=== PATIENT | male | born 1960 | race Caucasian/White ===

== ENCOUNTER 2017-07-23 11:04 | Emergency (ER) | payer MEDICAID ==
[2017-07-23] MEDS ORDERED: Promethazine/Cod 6.25mg-10mg/5ml Syr UD PO STA (11:34)
[2017-07-23] MEDS ORDERED: Albuterol-Ipratrop 3 mg / 0.5 (3 ml) UD IH STA (11:37)
--- NOTE | 2017-07-23 11:41 | ED PDOC ---
Arrival/HPI - General Chief Complaint: Cough, Cold, Congestion Time Seen by Provider: 07/23/17 11:33 Historian: Patient - History of Present Illness Narrative History of Present Illness (Text): 07/23/17 11:38 This 57 yo male presents to this ED c/o cough, fever since yesterday. Patient denies recent travel, dizziness, sob, cp, abdominal pain, skin rash, or abnormal gait. Time/Duration: Other (see hpi) Context: Home Past Medical History - Provider Review Nursing Documentation Reviewed: Yes - Infectious Disease Hx of Infectious Diseases: None - Cardiac Hx Hypertension: Yes - Endocrine/Metabolic Hx Diabetes Mellitus Type 2: Yes - Psychiatric Hx Substance Use: No Family/Social History - Physician Review Nursing Documentation Reviewed: Yes Family/Social History: Other (noncontributory) Smoking Status: Never Smoked Hx Alcohol Use: No Hx Substance Use: No Allergies/Home Meds Allergies/Adverse Reactions: Allergies No Known Allergies Allergy (Verified 07/23/17 11:34) Review of Systems - Review of Systems Constitutional: Fevers. absent: Fatigue, Weight Change, Night Sweats Eyes: Normal ENT: Normal. absent: Sore Throat, Rhinorrhea Respiratory: Cough. absent: SOB, Sputum, Wheezing Cardiovascular: Normal. absent: Chest Pain, Palpitations Gastrointestinal: Normal. absent: Abdominal Pain, Nausea, Vomiting Genitourinary Male: Normal. absent: Dysuria, Frequency Musculoskeletal: Normal Skin: Normal Neurological: Normal. absent: Headache, Dizziness, Focal Weakness, Gait Changes , Speech Changes, Facial Droop, Disequilibrium, Seizure Endocrine: Normal Hemo/Lymphatic: Normal Psychiatric: Normal Physical Exam Vital Signs Temp Pulse Resp BP Pulse Ox 07/23/17 11:36 101.7 F H 91 H 18 122/63 98 Temperature: Febrile Blood Pressure: Normal Pulse: Regular Respiratory Rate: Normal Appearance: Positive for: Well-Appearing, Non-Toxic, Comfortable Pain Distress: None Mental Status: Positive for: Alert and Oriented X 3 - Systems Exam Head: Present: Atraumatic, Normocephalic Pupils: Present: PERRL Extroacular Muscles: Present: EOMI Conjunctiva: Present: Normal Mouth: Present: Moist Mucous Membranes Pharnyx: Present: Normal. No: ERYTHEMA, EXUDATE, TONSILS ENLARGED Neck: Present: Normal Range of Motion Respiratory/Chest: Present: Clear to Auscultation, Good Air Exchange. No: Respiratory Distress, Accessory Muscle Use, Wheezes, Retracting, Rhonchi Cardiovascular: Present: Regular Rate and Rhythm, Normal S1, S2. No: Murmurs Abdomen: Present: Normal Bowel Sounds. No: Tenderness, Distention, Peritoneal Signs Back: Present: Normal Inspection. No: CVA Tenderness, Midline Tenderness Upper Extremity: Present: Normal Inspection, Normal ROM, NORMAL PULSES, Neurovascularly Intact, Capillary Refill < 2s. No: Cyanosis, Edema Lower Extremity: Present: Normal Inspection, NORMAL PULSES, Normal ROM. No: Edema Neurological: Present: GCS=15, CN II-XII Intact, Speech Normal, Motor Func Grossly Intact, Normal Sensory Function, Normal Cerebellar Funct, Gait Normal Skin: Present: Warm, Dry, Normal Color. No: Rashes Psychiatric: Present: Alert, Oriented x 3, Normal Insight, Normal Concentration Medical Decision Making ED Course and Treatment: 07/23/17 13:21 Re-evaluation. Patient feels better. Discussed results and plan with patient who expresses understanding. All questions answered and there is agreement with the plan to discharge home with instructions. Patient stable for discharge. Return if symptoms persist or worsen. Re-evaluation Time: 13:21 Reassessment Condition: Re-examined, Improved - Lab Interpretations Lab Results: Lab Results 07/23/17 12:01: Influenza Typ A,B (EIA) Negative for flu a/b I have reviewed the lab results: Yes Interpretation: No clinic. lab abnormalty - RAD Interpretation Narrative RAD Interpretations (Text): 07/23/17 12:13 HISTORY: Cough. Flu-like symptoms. COMPARISON: No prior. FINDINGS: LUNGS: No active pulmonary disease. PLEURA: No significant pleural effusion identified, no pneumothorax apparent. CARDIOVASCULAR: No radiographic findings to suggest acute or significant cardiovascular disease. OSSEOUS STRUCTURES: No significant abnormalities. VISUALIZED UPPER ABDOMEN: Normal. OTHER FINDINGS: None. IMPRESSION: No active disease. Radiology Orders: 07/23/17 11:44 CHEST PORTABLE [RAD] Stat - Medication Orders Current Medication Orders: Azithromycin (Zithromax) 500 mg PO STAT STA PRN Reason: Protocol Stop: 07/23/17 13:22 Discontinued Medications Acetaminophen (Tylenol 325mg Tab) 975 mg PO STAT STA Stop: 07/23/17 11:38 Last Admin: 07/23/17 12:23 Dose: 975 mg MAR Pain/Vitals Document 07/23/17 12:23 GMD (Rec: 07/23/17 12:23 GMD [id number]) Pain Reassessment Is This A Pain ReAssessment? No Albuterol/Ipratropium (Duoneb 3 Mg/0.5 Mg (3 Ml) Ud) 3 ml IH STAT STA Stop: 07/23/17 11:38 Last Admin: 07/23/17 12:23 Dose: 3 ml Promethazine HCl/Codeine (Phenergan/Codeine Oral Syrup) 5 ml PO STAT STA Stop: 07/23/17 11:35 Last Admin: 07/23/17 12:23 Dose: 5 ml Disposition/Present on Arrival - Present on Arrival Any Indicators Present on Arrival: No History of DVT/PE: No History of Uncontrolled Diabetes: No Urinary Catheter: No History of Decub. Ulcer: No History Surgical Site Infection Following: None - Disposition Have Diagnosis and Disposition been Completed?: Yes Diagnosis: Bronchitis Disposition: HOME/ ROUTINE Disposition Time: 13:22 Patient Plan: Discharge Patient Problems: Current Active Problems Problem Status Onset Bronchitis Acute Condition: GOOD Discharge Instructions (ExitCare): Acute Bronchitis (ED) Additional Instructions: Call private doctor for follow up visit in 1-2 days. take medication as instructed. Return to emergency if symptoms worsen. Prescriptions: Azithromycin [Z-Yo] 250 mg PO DAILY #4 tab Ibuprofen [Motrin] 600 mg PO Q6H PRN #20 tab PRN Reason: Fever >100.4 F Promethazine [Phenergan Syrup] 6.25 mg PO Q4H PRN #120 ml PRN Reason: Cough And Congestion Referrals: Tanesha Miller DO [Family Provider] - Follow up with primary Forms: [employer] (Salvadorean)
[2017-07-23 11:44] VITALS: RESP 18; TEMP 101.7
--- NOTE | 2017-07-23 12:10 | RAD ---
HISTORY: Cough. Flu-like symptoms. COMPARISON: No prior. FINDINGS: LUNGS: No active pulmonary disease. PLEURA: No significant pleural effusion identified, no pneumothorax apparent. CARDIOVASCULAR: No radiographic findings to suggest acute or significant cardiovascular disease. OSSEOUS STRUCTURES: No significant abnormalities. VISUALIZED UPPER ABDOMEN: Normal. OTHER FINDINGS: None. IMPRESSION: No active disease.
[2017-07-23 13:47] VITALS: BP 124/79; PULSE 82; O2SAT 100
== END 2017-07-23 14:14 | disposition home or self-care (01) ==
LOC: ED 11:04
DX: J20.9 Acute bronchitis, unspecified (principal)

== ENCOUNTER 2017-09-02 05:42 | Emergency (ER) | payer MEDICAID ==
[2017-09-02 05:53] VITALS: RESP 18
[2017-09-02] MEDS ORDERED: DiphenhydrAMINE 50 mg/ml Inj IVP STA (06:21)
--- NOTE | 2017-09-02 06:25 | ED PDOC ---
Arrival/HPI - General Chief Complaint: Allergic Reaction Time Seen by Provider: 09/02/17 06:11 Historian: Patient, Family - History of Present Illness Narrative History of Present Illness (Text): 09/02/17 06:22 Patient is a 57M who comes to the ED complaining of diffuse itchiness for 3 days duration. It started gradually and is intermittent in nature. However, sometimes it is associated with SOB and dizziness. His only know allergy is to penicillin and he denies any inciting factors to the itchiness. He denies noticing any hives or rashes. He denies any chest pain, fevers, chills, nausea, vomiting. The patient has never experienced this before. Symptom Onset: Gradual Symptom Course: Intermittent Activities at Onset: Rest Past Medical History - Infectious Disease Hx of Infectious Diseases: None - Cardiac Hx Hypertension: Yes - Endocrine/Metabolic Hx Diabetes Mellitus Type 2: Yes - Psychiatric Hx Substance Use: No Family/Social History Family/Social History: Unknown Family HX Smoking Status: Never Smoked Hx Alcohol Use: No Hx Substance Use: No Allergies/Home Meds Allergies/Adverse Reactions: Allergies No Known Allergies Allergy (Verified 07/23/17 11:34) Review of Systems - Review of Systems Constitutional: Normal Eyes: Normal ENT: Normal Respiratory: SOB Cardiovascular: absent: Chest Pain Gastrointestinal: Normal. absent: Nausea, Vomiting Genitourinary Male: Normal Musculoskeletal: Normal Skin: Rash, Pruritis Neurological: Normal Endocrine: Normal Hemo/Lymphatic: Normal Psychiatric: Normal Physical Exam Vital Signs Reviewed: Yes Vital Signs Temp Pulse Resp BP Pulse Ox 09/02/17 05:52 97.7 F 88 18 132/74 99 Temperature: Afebrile Blood Pressure: Normal Pulse: Regular Respiratory Rate: Normal Appearance: Positive for: Well-Appearing, Non-Toxic, Comfortable Pain Distress: None Mental Status: Positive for: Alert and Oriented X 3 - Systems Exam Head: Present: Atraumatic, Normocephalic Pupils: Present: PERRL Extroacular Muscles: Present: EOMI Conjunctiva: Present: Normal Mouth: Present: Moist Mucous Membranes Neck: Present: Normal Range of Motion Respiratory/Chest: Present: Clear to Auscultation, Good Air Exchange. No: Respiratory Distress, Accessory Muscle Use Cardiovascular: Present: Regular Rate and Rhythm, Normal S1, S2. No: Murmurs Abdomen: Present: Normal Bowel Sounds, Peritoneal Signs. No: Tenderness, Distention Upper Extremity: Present: Normal Inspection. No: Cyanosis, Edema Lower Extremity: Present: Normal Inspection. No: Edema Neurological: Present: GCS=15, CN II-XII Intact, Speech Normal Skin: Present: Warm, Dry, Normal Color. No: Rashes Psychiatric: Present: Alert, Oriented x 3, Normal Insight, Normal Concentration Medical Decision Making ED Course and Treatment: 09/02/17 06:28 patient currently itchy w/ no associated SOB Will give Benadryl and Steroids and reassess. - Medication Orders Current Medication Orders: Discontinued Medications Diphenhydramine HCl (Benadryl) 25 mg IVP STAT STA Stop: 09/02/17 06:22 Prednisone (Prednisone Tab) 5 mg PO STAT STA Stop: 09/02/17 06:22 Disposition/Present on Arrival - Present on Arrival Any Indicators Present on Arrival: No History of DVT/PE: No History of Uncontrolled Diabetes: No Urinary Catheter: No History of Decub. Ulcer: No History Surgical Site Infection Following: None - Disposition Have Diagnosis and Disposition been Completed?: Yes Diagnosis: Generalized pruritus Disposition Time: 06:30 Patient Plan: Discharge Condition: STABLE Forms: [employer] (Thai)
[2017-09-02 07:16] LABS: BASO # 0.09 K/mm3 (0.0-2.0); EOS # 0.7 (0.0-0.7); EOS % 7.8 % (1.5-5.0); GRAN # 3.58 (1.4-6.5); LYMPH # 4.5 (1.2-3.4); LYMPH % 47.5 % (22.0-35.0); MEAN CELL VOLUME 90.5 fl (80.0-105.0); MEAN CORPUSCULAR HGB CONC 36.5 g/dl (31.0-37.0); MEAN PLATELET VOLUME 12.4 fl (7.0-11.0); MONO # 0.5 (0.1-0.6); MONO % 5.7 % (1.0-6.0); RBC 5.15 10^6/uL (3.5-6.1); RED CELL DISTRIBUTION WIDTH 13.2 % (11.5-14.5); WHITE BLOOD COUNT 9.4 10^3/ul (4.5-11.0)
[2017-09-02 07:27] LABS: ALB/GLOB RATIO 1.1 (1.1-1.8); ALBUMIN 4.1 g/dL (3.0-4.8); ALT/SGPT 83 U/L (7-56); AST/SGOT 59 U/L (17-59); BLOOD UREA NITROGEN 10 mg/dL (7-21); CALCIUM 9.7 mg/dL (8.4-10.5); GFR AFRICAN-AMERICAN > 60; GFR NON-AFRICAN AMERICAN > 60
[2017-09-02 07:38] VITALS: BP 129/79; PULSE 70; TEMP 97.8; O2SAT 96
--- NOTE | 2017-09-02 09:48 | ED PDOC ---
Physical Exam Vital Signs Reviewed: Yes Vital Signs Temp Pulse Resp BP Pulse Ox 09/02/17 07:33 97.8 F 70 18 129/79 96 09/02/17 05:52 97.7 F 88 18 132/74 99 Temperature: Afebrile Blood Pressure: Normal Pulse: Regular Respiratory Rate: Normal Appearance: Positive for: Well-Appearing, Non-Toxic, Comfortable Pain Distress: None Mental Status: Positive for: Alert and Oriented X 3 Medical Decision Making ED Course and Treatment: 09/02/17 09:47 Pt signed to me by Austin Eubanks. Pt was awaiting a follow up of labs. Labs are normal. Pt will follow up with PMD in 2 weeks. - Lab Interpretations Lab Results: 09/02/17 07:00 09/02/17 07:00 Lab Results 09/02/17 07:00: Sodium 141, Potassium 3.4 L, Chloride 105, Carbon Dioxide 26, Anion Gap 14, BUN 10, Creatinine 0.9, Est GFR ( Amer) > 60, Est GFR (Non- Af Amer) > 60, Random Glucose 128 H, Calcium 9.7, Magnesium 1.9, Total Bilirubin 0.4, AST 59, ALT 83 H, Alkaline Phosphatase 99, Total Protein 7.9, Albumin 4.1, Globulin 3.7, Albumin/Globulin Ratio 1.1 09/02/17 07:00: WBC 9.4, RBC 5.15, Hgb 17.0, Hct 46.6, MCV 90.5, MCH 33.0, MCHC 36.5, RDW 13.2, Plt Count 149, MPV 12.4 H, Gran % 38.0 L, Lymph % (Auto) 47.5 H , [place] % (Auto) 5.7, Eos % (Auto) 7.8 H, Baso % (Auto) 1.0, Gran # 3.58, Lymph # (Auto) 4.5 H, [place] # (Auto) 0.5, Eos # (Auto) 0.7, Baso # (Auto) 0.09 - Medication Orders Current Medication Orders: Discontinued Medications Diphenhydramine HCl (Benadryl) 25 mg IVP STAT STA Stop: 09/02/17 06:22 Last Admin: 09/02/17 06:54 Dose: 25 mg IVP Administration Document 09/02/17 06:54 JESSICA (Rec: 09/02/17 06:54 JESSICA [id number]) Charges for Administration # of IVP Administrations 1 Prednisone (Prednisone Tab) 5 mg PO STAT STA Stop: 09/02/17 06:22 Last Admin: 09/02/17 06:57 Dose: - Scribe Statement The provider has reviewed the documentation as recorded by the Scribe Sade Haque All medical record entries made by the Scribe were at my direction and personally dictated by me. I have reviewed the chart and agree that the record accurately reflects my personal performance of the history, physical exam, medical decision making, and the department course for this patient. I have also personally directed, reviewed, and agree with the discharge instructions and disposition. Disposition/Present on Arrival - Present on Arrival Any Indicators Present on Arrival: No History of DVT/PE: No History of Uncontrolled Diabetes: No Urinary Catheter: No History of Decub. Ulcer: No History Surgical Site Infection Following: None - Disposition Have Diagnosis and Disposition been Completed?: Yes Diagnosis: Generalized pruritus Disposition: HOME/ ROUTINE Disposition Time: 07:30 Condition: STABLE Discharge Instructions (ExitCare): Itchy Skin Additional Instructions: Thank you for letting us take care of you today. The emergency medical care you received today was directed at your acute symptoms. If you were prescribed any medication, please fill it and take as directed. It may take several days for your symptoms to resolve. Return to the Emergency Department if your symptoms worsen, do not improve, or if you have any other problems. Please contact your doctor or call one of the physicians/clinics you have been referred to that are listed on the Patient Visit Information form that is included in your discharge packet. Bring any paperwork you were given at discharge with you along with any medications you are taking to your follow up visit. Our treatment cannot replace ongoing medical care by a primary care provider (PCP) outside of the emergency department. Thank you for allowing the [facility] team to be part of your care today. Follow up with your primary care doctor in 2-3 days for re-evaluation and further management. Referrals: Diallo Mena DO [Primary Care Provider] - Follow up with primary Forms: [employer] (Yakut)
== END 2017-09-02 08:17 | disposition home or self-care (01) ==
LOC: ED 05:42
DX: L29.9 Pruritus, unspecified (principal)
CPT/HCPCS: 80053; 83735; 85025; 96374; 99282; J1200; J2930

== ENCOUNTER 2018-04-16 21:12 | Emergency (ER) | payer MEDICAID ==
[2018-04-16 21:24] VITALS: BMI 31.3
[2018-04-16] MEDS ORDERED: Sodium Chloride 0.9% 1,000 ML IV STA (21:43)
[2018-04-16 21:44] VITALS: TEMP 98.1
[2018-04-16 21:52] LABS: BASO # 0.04 K/mm3 (0.0-2.0); BASO % 0.3 % (0.0-3.0); EOS # 0.2 (0.0-0.7); EOS % 1.4 % (1.5-5.0); GRAN # 8.04 (1.4-6.5); LYMPH # 2.9 (1.2-3.4); LYMPH % 24.7 % (22.0-35.0); MEAN CELL VOLUME 92.3 fl (80.0-105.0); MEAN CORPUSCULAR HEMOGLOBIN 32.8 pg (25.0-35.0); MEAN CORPUSCULAR HGB CONC 35.5 g/dl (31.0-37.0); MEAN PLATELET VOLUME 12.2 fl (7.0-11.0); MONO # 0.7 (0.1-0.6); MONO % 5.6 % (1.0-6.0); RBC 5.19 10^6/uL (3.5-6.1); RED CELL DISTRIBUTION WIDTH 13.7 % (11.5-14.5); WHITE BLOOD COUNT 11.8 10^3/uL (4.5-11.0)
[2018-04-16 22:03] LABS: BLOOD UREA NITROGEN 16 mg/dL (7-21); CALCIUM 9.5 mg/dL (8.4-10.5); GFR NON-AFRICAN AMERICAN > 60; LIPASE 105 U/L (23-300)
[2018-04-16 22:11] LABS: INR 1.09; PARTIAL THROMBOPLASTIN TIME 30.6 Seconds (25.1-36.5); PROTHROMBIN TIME 12.4 SECONDS (9.4-12.5)
[2018-04-16 22:27] LABS: ALB/GLOB RATIO 1.2 (1.1-1.8); ALBUMIN 4.2 g/dL (3.0-4.8); ALT/SGPT 50 U/L (7-56); AST/SGOT 48 U/L (17-59)
[2018-04-16 23:07] LABS: PH,URINE 5.5 (4.7-8.0); URINE APPEARANCE SLIGHT-CLOUDY (CLEAR); URINE BILIRUBIN NEGATIVE (NEGATIVE); URINE BLOOD LARGE (NEGATIVE); URINE COLOR BROWN (YELLOW); URINE GLUCOSE (UA) NEGATIVE (NEGATIVE); URINE LEUKOCYTE ESTERASE TRACE Leu/uL (NEGATIVE); URINE PROTEIN 30 mg/dL (<30 mg/dL)
[2018-04-16 23:08] LABS: URINE BACTERIA SMALL (NEG); URINE RBC TNTC /hpf (0-2)
--- NOTE | 2018-04-17 00:07 | ED PDOC ---
Arrival/HPI - General Historian: Patient - History of Present Illness Narrative History of Present Illness (Text): 04/16/18 23:57 58yo male with past medical history of hypertension, Diabetes who present with complaint of left sided flank pain that started at 1930 this evening. the son by the bedside states he had the pain last week and it resolved and then started again this evening. Report history of kidney stone 9years ago. States he was nausea earlier, but it resolved. +Hematuria. Denies fever, chills, back pain, urinary frequency/hesitancy, vomiting, diarrhea, constipation, any other complaint. <Cathie Shepard - Last Filed: 04/17/18 00:48> <Ricky Haro - Last Filed: 04/17/18 00:58> - General Chief Complaint: Back Pain Past Medical History - Provider Review Nursing Documentation Reviewed: Yes - Infectious Disease Hx of Infectious Diseases: None - Cardiac Hx Hypertension: Yes - Endocrine/Metabolic Hx Diabetes Mellitus Type 2: Yes - Hematological/Oncological Hx Blood Disorders: No - Integumentary Hx Dermatological Disorder: No - Musculoskeletal/Rheumatological Hx Musculoskeletal Disorders: No - Gastrointestinal Hx Gastrointestinal Disorders: No - Genitourinary/Gynecological Hx Genitourinary Disorders: No - Psychiatric Hx Psychophysiologic Disorder: No Hx Substance Use: No - Anesthesia Hx Anesthesia: No <Cathie Shepard A - Last Filed: 04/17/18 00:48> Family/Social History - Physician Review Nursing Documentation Reviewed: Yes Family/Social History: Unknown Family HX Smoking Status: Never Smoked Hx Alcohol Use: No Hx Substance Use: No <Cathie Shepard - Last Filed: 04/17/18 00:48> Allergies/Home Meds <Cathie Shepard - Last Filed: 04/17/18 00:48> <Ricky Haro - Last Filed: 04/17/18 00:58> Allergies/Adverse Reactions: Allergies Penicillins Allergy (Verified 04/16/18 21:25) SHORTNESS OF BREATH Home Medications: Home Meds Medication Instructions Recorded Confirmed Alogliptin Benzoate [Alogliptin] 25 mg PO DAILY 04/16/18 04/16/18 Atorvastatin [Lipitor] 20 mg PO DAILY 04/16/18 04/16/18 Bisoprolol Fumarate 5 mg PO DAILY 04/16/18 04/16/18 Cholecalciferol (Vitamin D3) 1 tab PO MON 04/16/18 04/16/18 [Vitamin D3] Metformin HCl [Glucophage] 1,000 mg PO BID 04/16/18 04/16/18 Multivitamin with Iron [Tab-A-Ying 1 tab PO DAILY 04/16/18 04/16/18 with Iron] Phenazopyridine HCl 200 mg PO TID PRN 04/16/18 04/16/18 Review of Systems - Physician Review All systems were reviewed & negative as marked: Yes - Review of Systems Constitutional: Normal Eyes: Normal ENT: Normal Respiratory: Normal Cardiovascular: Normal Gastrointestinal: Abdominal Pain (LEft flank), Nausea. absent: Constipation, Diarrhea, Vomiting, Appetite Changes, Hematochezia, Hematemesis Genitourinary Male: Hematuria. absent: Dysuria, Frequency Musculoskeletal: Normal Skin: Normal Neurological: Normal Endocrine: Normal Hemo/Lymphatic: Normal Psychiatric: Normal <Diru,Happiness A - Last Filed: 04/17/18 00:48> Physical Exam Vital Signs Reviewed: Yes Vital Signs Temp Pulse Resp BP Pulse Ox 04/16/18 21:34 98.1 F 73 18 169/87 H 98 Temperature: Afebrile Blood Pressure: Normal Pulse: Regular Respiratory Rate: Normal Appearance: Positive for: Well-Appearing, Non-Toxic, Comfortable Pain Distress: None Mental Status: Positive for: Alert and Oriented X 3 - Systems Exam Head: Present: Atraumatic, Normocephalic Pupils: Present: PERRL Extroacular Muscles: Present: EOMI Conjunctiva: Present: Normal Mouth: Present: Moist Mucous Membranes Neck: Present: Normal Range of Motion Respiratory/Chest: Present: Clear to Auscultation, Good Air Exchange. No: Respiratory Distress, Accessory Muscle Use Cardiovascular: Present: Regular Rate and Rhythm, Normal S1, S2. No: Murmurs Abdomen: Present: Tenderness (Left flank), Normal Bowel Sounds, Other (Soft). No: Distention, Peritoneal Signs, Rebound, Guarding, McBurney's Point Tender, Rovsing's Sign Present Back: Present: Normal Inspection Upper Extremity: Present: Normal Inspection. No: Cyanosis, Edema Lower Extremity: Present: Normal Inspection. No: Edema Neurological: Present: GCS=15, CN II-XII Intact, Speech Normal Skin: Present: Warm, Dry, Normal Color. No: Rashes Psychiatric: Present: Alert, Oriented x 3, Normal Insight, Normal Concentration <Cathie Shepard - Last Filed: 04/17/18 00:48> Vital Signs Temp Pulse Resp BP Pulse Ox 04/16/18 21:34 98.1 F 73 18 169/87 H 98 <Ricky Haro - Last Filed: 04/17/18 00:58> Medical Decision Making ED Course and Treatment: 04/17/18 00:13 PT presented for stated history. He was in pain on observation. On r evaluation after medication and hydration, he reports improvement of his pain. He was laughing and having conversation with his family members by the bedside. Labs was reviewed and mild leukocytosis was noted He have UTI Abdominal/Pelvic CT Impression: 1. Mild left-sided hydronephrosis and hydroureter caused by a 2 mm obstructing stone in the distal left ureter. 2. No obstructive or inflammatory bowel changes. Result was DW both the pt and the family members. He was referred to a Urologist Zahira Mcmillan and Percocet was given to the pt Advised to return to ED fEmergency department new or worsening symptoms - Lab Interpretations Lab Results: 04/16/18 21:49 04/16/18 21:49 Lab Results 04/16/18 22:57: Urine Color Brown, Urine Appearance Slight-cloudy, Urine pH 5.5, Ur Specific [place] >= 1.030, Urine Protein 30 H, Urine Glucose (UA) Negative, Urine Ketones Trace H, Urine Blood Large H, Urine Nitrate Positive H, Urine Bilirubin Negative, Urine Urobilinogen 1.0 H, Ur Leukocyte Esterase Trace H, Urine RBC Tntc, Urine WBC 1 - 3, Ur Epithelial Cells None, Urine Bacteria Small 04/16/18 21:49: Sodium 140, Potassium 3.7, Chloride 106, Carbon Dioxide 22, Anion Gap 16, BUN 16, Creatinine 1.0, Est GFR ( Amer) > 60, Est GFR (Non- Af Amer) > 60, Random Glucose 164 H, Calcium 9.5, Magnesium 1.7, Total Bilirubin 0.8, AST 48, ALT 50, Alkaline Phosphatase 103, Total Protein 7.8, Albumin 4.2, G lobulin 3.6, Albumin/Globulin Ratio 1.2, Lipase 105 04/16/18 21:49: PT 12.4, INR 1.09, APTT 30.6 04/16/18 21:49: WBC 11.8 H, RBC 5.19, Hgb 17.0, Hct 47.9, MCV 92.3, MCH 32.8, MCHC 35.5, RDW 13.7, Plt Count 128, MPV 12.2 H, Gran % 68.0, Lymph % (Auto) 24.7, [place] % (Auto) 5.6, Eos % (Auto) 1.4 L, Baso % (Auto) 0.3, Gran # 8.04 H, Lymph # (Auto) 2.9, [place] # (Auto) 0.7 H, Eos # (Auto) 0.2, Baso # (Auto) 0.04 - RAD Interpretation Radiology Orders: 04/16/18 21:42 ABD & PELVIS W/O PO OR IV CONT [CT] Stat - Medication Orders Current Medication Orders: Discontinued Medications Sodium Chloride (Sodium Chloride 0.9%) 1,000 mls @ 999 mls/hr IV .Q1H1M STA Stop: 04/16/18 22:43 Last Admin: 04/16/18 21:54 Dose: 999 mls/hr eMAR Start Stop Document 04/16/18 21:54 IT (Rec: 04/16/18 21:54 IT [place] [id number]) Intravenous Solution Start Date 04/16/18 Start Time 21:54 Ketorolac Tromethamine (Toradol) 30 mg IVP STAT STA Stop: 04/16/18 21:44 Last Admin: 04/16/18 21:54 Dose: 30 mg MAR Pain Assessment Document 04/16/18 21:54 IT (Rec: 04/16/18 21:54 [place] [id number]) Pain Reassessment Is this a pain reassessment? No IVP Administration Document 04/16/18 21:54 IT (Rec: 04/16/18 21:54 IT [place] [id number]) Charges for Administration # of IVP Administrations 1 <Cathie Shepard - Last Filed: 04/17/18 00:48> - Lab Interpretations Lab Results: 04/16/18 21:49 04/16/18 21:49 Lab Results 04/16/18 22:57: Urine Color Brown, Urine Appearance Slight-cloudy, Urine pH 5.5, Ur Specific [place] >= 1.030, Urine Protein 30 H, Urine Glucose (UA) Negative, Urine Ketones Trace H, Urine Blood Large H, Urine Nitrate Positive H, Urine Bilirubin Negative, Urine Urobilinogen 1.0 H, Ur Leukocyte Esterase Trace H, Urine RBC Tntc, Urine WBC 1 - 3, Ur Epithelial Cells None, Urine Bacteria Small 04/16/18 21:49: Sodium 140, Potassium 3.7, Chloride 106, Carbon Dioxide 22, Anion Gap 16, BUN 16, Creatinine 1.0, Est GFR ( Amer) > 60, Est GFR (Non- Af Amer) > 60, Random Glucose 164 H, Calcium 9.5, Magnesium 1.7, Total Bilirubin 0.8, AST 48, ALT 50, Alkaline Phosphatase 103, Total Protein 7.8, Albumin 4.2, Globulin 3.6, Albumin/Globulin Ratio 1.2, Lipase 105 04/16/18 21:49: PT 12.4, INR 1.09, APTT 30.6 04/16/18 21:49: WBC 11.8 H, RBC 5.19, Hgb 17.0, Hct 47.9, MCV 92.3, MCH 32.8, MCHC 35.5, RDW 13.7, Plt Count 128, MPV 12.2 H, Gran % 68.0, Lymph % (Auto) 24.7, [place] % (Auto) 5.6, Eos % (Auto) 1.4 L, Baso % (Auto) 0.3, Gran # 8.04 H, Lymph # (Auto) 2.9, [place] # (Auto) 0.7 H, Eos # (Auto) 0.2, Baso # (Auto) 0.04 - RAD Interpretation Radiology Orders: 04/16/18 21:42 ABD & PELVIS W/O PO OR IV CONT [CT] Stat - Medication Orders Current Medication Orders: Discontinued Medications Ciprofloxacin (Cipro) 500 mg PO ONCE STA; Protocol Stop: 04/17/18 00:22 Last Admin: 04/17/18 00:37 Dose: 500 mg Sodium Chloride (Sodium Chloride 0.9%) 1,000 mls @ 999 mls/hr IV .Q1H1M STA Stop: 04/16/18 22:43 Last Admin: 04/16/18 21:54 Dose: 999 mls/hr eMAR Start Stop Document 04/16/18 21:54 IT (Rec: 04/16/18 21:54 IT [email or web address]) Intravenous Solution Start Date 04/16/18 Start Time 21:54 Ketorolac Tromethamine (Toradol) 30 mg IVP STAT STA Stop: 04/16/18 21:44 Last Admin: 04/16/18 21:54 Dose: 30 mg MAR Pain Assessment Document 04/16/18 21:54 IT (Rec: 04/16/18 21:[address] [facility] Pain Reassessment Is this a pain reassessment? No IVP Administration Document 04/16/18 21:54 IT (Rec: 04/16/18 21:54 IT [facility] Charges for Administration # of IVP Administrations 1 Oxycodone/Acetaminophen (Percocet 5/325 Mg Tab) 1 tab PO STAT STA Stop: 04/17/18 00:47 Last Admin: 04/17/18 00:56 Dose: 1 tab MAR Pain Assessment Document 04/17/18 00:56 IT (Rec: 04/17/18 00:57 IT [facility] Pain Reassessment Is this a pain reassessment? No Sleep Is patient sleeping during reassessment? No Presence of Pain Presence of Pain Yes Tamsulosin HCl (Flomax) 0.4 mg PO STAT STA Stop: 04/17/18 00:22 Last Admin: 04/17/18 00:38 Dose: 0.4 mg <Ricky Haro - Last Filed: 04/17/18 00:58> - PA / BUSINESS ASSISTANT / Resident Statement / has reviewed & agrees with the documentation as recorded. <Ricky Haro - Last Filed: 04/17/18 00:58> Disposition/Present on Arrival - Present on Arrival Any Indicators Present on Arrival: No History of DVT/PE: No History of Uncontrolled Diabetes: No Urinary Catheter: No History of Decub. Ulcer: No History Surgical Site Infection Following: None - Disposition Have Diagnosis and Disposition been Completed?: Yes Disposition Time: 00:25 Patient Plan: Discharge <Cathie Shepard - Last Filed: 04/17/18 00:48> <Ricky Haro - Last Filed: 04/17/18 00:58> - Disposition Diagnosis: UTI (urinary tract infection), Ureter colic Disposition: HOME/ ROUTINE Patient Problems: Current Active Problems Problem Status Onset UTI (urinary tract infection) Acute Ureter colic Acute Condition: STABLE Discharge Instructions (ExitCare): Urinary Tract Infections in Adults, Renal Colic Additional Instructions: Follow up with a Urologist Drink plenty of fluid and rest Return to Emergency department for any new or worsening symptoms Prescriptions: Ciprofloxacin [Cipro] 500 mg PO BID #14 tab oxyCODONE/Acetaminophen [Percocet 5/325 mg Tab] 1 ea PO Q6 #8 tab Tamsulosin [Flomax] 0.4 mg PO DAILY #3 cap Referrals: Hussein Simeon MD [Staff Provider] - Follow up with primary Forms: [employer] ([place])
[2018-04-17] MEDS ORDERED: Oxycodone/Acetaminophen 5/325 mg Tab PO STA (00:46)
[2018-04-17 01:09] VITALS: BP 142/68; PULSE 72; RESP 17; O2SAT 100
--- NOTE | 2018-04-17 09:55 | CT ---
Date of service: 04/16/2018 PROCEDURE: CT Abdomen and Pelvis with Oral contrast. HISTORY: Left flank pain COMPARISON: No prior study available comparison TECHNIQUE: Contiguous axial images of the abdomen and pelvis without oral or intravenous contrast material. Additional 2D sagittal and coronal reformats generated. Radiation dose: Total exam DLP = 1156.23 mGy-cm. This CT exam was performed using one or more of the following dose reduction techniques: Automated exposure control, adjustment of the mA and/or kV according to patient size, and/or use of iterative reconstruction technique. FINDINGS: LOWER THORAX: Heart size is mildly enlarged. No significant pericardial effusion. Small hiatal hernia. Wall thickening of distal esophagus likely due to protrusion gastric mucosa however esophagitis not excluded. Passive/dependent type atelectasis both posterior lower lung mariee. No effusion or basilar pneumothorax. LIVER: Liver is enlarged measuring over 20 cm in CC dimension. No obvious hepatic mass collection or calcification. GALLBLADDER AND BILE DUCTS: Gallbladder is incompletely distended the (likely due to nonfasting state) which may in part account for slight thick-walled appearance. No evidence of intraluminal gallbladder calculi. PANCREAS: Pancreas slightly atrophic and fatty replaced. No evidence of pancreatic masses collections or calcifications. SPLEEN: Spleen is enlarged measuring nearly 15 cm in CC dimension. No splenic mass collection or calcification. ADRENALS: There is slight prominence of the right adrenal gland more so than left which exhibits low-attenuation. The possibility of a small adenoma the to be considered. Follow-up of CT scan at interval could be performed to assess stability. KIDNEYS AND URETERS: The the kidneys demonstrate relatively symmetric size. There is mild left-sided hydronephrosis secondary to an approximately 3 mm obstructing calculus in the distal left ureter the just proximal to the UVJ region. Mild infiltration changes in the perinephric and periureteric fat. No other renal calculi are identified. No evidence of right-sided hydronephrosis.. BLADDER: Urinary bladder incompletely distended which in part account for thick-walled appearance however muscular hypertrophy presumably contributes. Correlation with urinalysis recommended to exclude cystitis.. REPRODUCTIVE: Prostate gland measures approximately 4.1 cm in transverse dimension. Prostatic calcifications are present. APPENDIX: Appendix is not seen with complete certainty however no inflammatory changes right lower quadrant of the abdomen BOWEL: Evaluation of the bowel is limited due to the lack of oral contrast material. Stomach is partially distended with food debris liquid and air. Visualized loops of small bowel exhibit normal contour and caliber. No evidence of acute mechanical small bowel obstruction. Stool and air seen throughout the large bowel. No definitive mural wall thickening. PERITONEUM: Unremarkable. No fluid collection. No free air. Small fat containing umbilical hernia. LYMPH NODES: Unremarkable. No enlarged lymph nodes. VASCULATURE: Unremarkable. No aortic aneurysm. No aortic atherosclerotic calcification or mural plaque present. BONES: Mild multilevel degenerative spondylosis of the lower thoracic and lumbar spine. There are no acute compression fractures nor retropulsed fragments however note made of bilateral spondylolysis L5-S1 level with very slight (less than grade 1) spondylolisthesis at this level. OTHER FINDINGS: None. IMPRESSION: There is a tiny 3 mm obstructing calculus distal left ureter with mild left-sided hydronephrosis.. Mild urinary bladder wall thickening in part due to incomplete distention and muscular hypertrophy however rule out cystitis. Questionable right adrenal adenoma. Follow-up CT scan at interval recommended to assess stability. Hepatosplenomegaly. Passive/dependent type atelectasis both posterior lower lung mariee. Cardiomegaly.
== END 2018-04-17 01:09 | disposition home or self-care (01) ==
LOC: ED 21:12
DX: N39.0 Urinary tract infection, site not specified (principal); N23 Unspecified renal colic; E11.9 Type 2 diabetes mellitus without complications; I10 Essential (primary) hypertension
CPT/HCPCS: 74176; 80053; 81001; 83690; 83735; 85025; 85610; 85730; 96374; 99283; J1885; J7030